=== PATIENT | female | born 1960 | race Caucasian/White ===

== ENCOUNTER 2017-04-03 09:24 | Emergency (ER) | payer BC ==
[2017-04-03] MEDS ORDERED: Ketorolac INJ* 60 MG/2 ML VIAL IM ONE (09:57)
[2017-04-03] MEDS ORDERED: Dexamethasone IV* 4 MG/ML 1 ML (4 MG) IM ONE (09:57)
--- NOTE | 2017-04-03 10:23 | ED ---
Oswaldo Winters Nikita, scribed for Michael San MD on 04/03/17 at 0959 . Upper Extremity Pain - HPI Summary HPI Summary: This patient is a 56 year old F presenting to ED with a chief complaint of L shoulder and arm pain since 2 weeks ago. The CC is described as worsening since onset and worse at night, radiating to the neck, tingling and numbing sensation to the L forearm, L thumb and index finger. The patient rates the pain 5-6/10 in severity currently and 9/10 at its worst. Symptoms aggravated by sleeping on the L shoulder and raising her L arm upwards. Symptoms alleviated by nothing. Patient denies any trauma to the shoulder. 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 - History of Current Complaint Chief Complaint: EDExtremityUpper Stated Complaint: LT ARM/SHOULDER PAIN Time Seen by Provider: 04/03/17 09:49 Hx Obtained From: Patient Onset/Duration: Started Weeks Ago, Still Present, Worse Since Timing: Constant, Lasting Weeks Severity Initially: Moderate Severity Currently: Moderate Pain Location: Shoulder - left, Forearm, Finger - L thumb and index finger Aggravating Factor(s): Other - sleeping on the L shoulder and raising her L arm upwards Alleviating Factor(s): Nothing Associated Signs & Symptoms: Positive: Other - denies trauma - Allergies/Home Medications Allergies/Adverse Reactions: Allergies Allergy/AdvReac Type Severity Reaction Status Date / Time Sulfa (Sulfonamide Allergy Hives Verified 04/03/17 09:31 Antibiotics) PMH/Surg Hx/FS Hx/Imm Hx Endocrine/Hematology History: Reports: Other Endocrine/Hematological Disorders - thyroid CA Denies: Hx Diabetes Cardiovascular History: Denies: Hx Coronary Artery Disease - Surgical History Surgery Procedure, Year, and Place: Ovaries removed (1983) Infectious Disease History: No Infectious Disease History: Denies: Traveled Outside the [place] in Last 30 Days - Family History Known Family History: Positive: Cardiac Disease, Hypertension Negative: Diabetes - Social History Occupation: Employed Full-time Alcohol Use: None Hx Substance Use: No Hx Tobacco Use: No Review of Systems Positive: Other - L shoulder pain radiating to the neck, L forearm, L thumb and index finger pain; denies trauma to shoulder Neurological: Other - numbness and tingling sensation to L thumb and index finger All Other Systems Reviewed And Are Negative: Yes Physical Exam - Summary Physical Exam Summary: VITAL SIGNS: Reviewed. GENERAL: ~Patient is a well-developed and nourished FEMALE who is lying comfortable in the stretcher. ~Patient is not in any acute respiratory distress. HEAD AND FACE: No signs of trauma. ~No ecchymosis, hematomas or skull depressions. No sinus tenderness. EYES: PERRLA, EOMI x 2, No injected conjunctiva, no nystagmus. EARS: Hearing grossly intact. Ear canals and tympanic membranes are within normal limits. MOUTH: Oropharynx within normal limits. NECK: Supple, trachea is midline, no adenopathy, no JVD, no carotid bruit, no c- spine tenderness, neck with full ROM. No neck tenderness, no deformities or hematoma. CHEST: Symmetric, no tenderness at palpation LUNGS: Clear to auscultation bilaterally. No wheezing or crackles. CVS: Regular rate and rhythm, S1 and S2 present, no murmurs or gallops appreciated. ABDOMEN: Soft, non-tender. No signs of distention. No rebound no guarding, and no masses palpated. Bowel sounds are normal. EXTREMITIES: FROM in all major joints, no edema, no cyanosis or clubbing. Positive phalen test, positive tenderness along L wrist. NEURO: Alert and oriented x 3. No acute neurological deficits. Speech is normal and follows commands. SKIN: Dry and warm Triage Information Reviewed: Yes Vital Signs On Initial Exam: Initial Vitals Temp Pulse Resp BP Pulse Ox 96.9 F 71 19 183/82 96 04/03/17 09:26 18 09:26 04/03/17 09:26 04/03/17 09:26 04/03/17 09:26 Vital Signs Reviewed: Yes Diagnostics - Vital Signs Vital Signs Temp Pulse Resp BP Pulse Ox 04/03/17 09:26 96.9 F 71 19 183/82 96 - Laboratory Lab Statement: Any lab studies that have been ordered have been reviewed, and results considered in the medical decision making process. Course/Dx - Course Assessment/Plan: In the physical, I believe the pt has carpal tunnel syndrome. therefore, the pt will be given decadron, toradol, and a wrist splint. The pt will be discharged with instructions to follow up with her PCP. The pt is hemodynamically stable, alert and oriented x3. - Diagnoses Differential Diagnosis/HQI/PQRI: Positive: Contusion, Fracture (Closed), Strain , Sprain, Other - carpal tunnel syndrome Provider Diagnoses: Carpal tunnel syndrome Discharge - Discharge Plan Condition: Stable Disposition: HOME Prescriptions: Ibuprofen TAB* [Motrin TAB* 600 MG] 600 mg PO Q8H PRN #30 tab PRN Reason: Pain methylPREDNISolone [Medrol Dosepak 4 MG*] 0 mg PO .SEE STEFANI INSTRUCTION #1 stefani Patient Education Materials: Paresthesia (ED) Referrals: Cyn Mae MD [Primary Care Provider] - 3 Days Additional Instructions: RETURN TO THE ED FOR ANY NEW OR WORSENING SYMPTOMS. The documentation as recorded by the Oswaldo duval Nikita accurately reflects the service I personally performed and the decisions made by Jaswinder calixto Walter, MD.
[2017-04-03 10:35] VITALS: BP 168/82
== END 2017-04-03 10:34 | disposition home or self-care (01) ==
LOC: ED 09:24
DX: G56.02 Carpal tunnel syndrome, left upper limb (principal); Z88.2 Allergy status to sulfonamides
CPT/HCPCS: 96372; 99282; J1100; J1885

== ENCOUNTER 2017-12-28 13:53 | Emergency (ER) | payer BC ==
[2017-12-28] MEDS ORDERED: Ondansetron INJ* 2 MG/ML VIAL IV ONE (14:36)
[2017-12-28] MEDS ORDERED: NS 0.9% 1000 ML* 1,000 ML IV ONE ×2 (14:36→15:55)
[2017-12-28 15:08] LABS: ABS Basophils 0 10^3/ul (0-0.2); ABS Eosinophils 0 10^3/ul (0-0.6); ABS Lymphocytes 1.6 10^3/ul (1.0-4.8); ABS Monocytes 0.6 10^3/ul (0-0.8); ABS Neutrophils 4.9 10^3/ul (1.5-7.7); ABS Nucleated RBC 0 10^3/ul; Eosinophil % 0.4 % (0-6); Hematocrit 45 % (35-47); Hemoglobin 15.3 g/dl (12.0-16.0); Lymphocyte % 22.6 % (25-47); Mean Corpuscular HGB Conc 34 g/dl (31-36); Mean Corpuscular Hemoglobin 27 pg (27-31); Mean Corpuscular Volume 80 fL (80-97); Mean Platelet Volume 7.1 um3 (7.4-10.4); Nucleated Red Blood Cells % 0.2; Platelet Count 167 10^3/ul (150-450); Red Blood Count 5.63 10^6/ul (4.00-5.40); Red Cell Distribution Width 15 % (10.5-15); White Blood Count 7.2 10^3/ul (3.5-10.8)
--- NOTE | 2017-12-28 15:33 | ED ---
GI/ HPI - HPI Summary HPI Summary: Pt is a 57 y/o female who presents to the ED c/o N/V/D for 3 days. She states the N/V has improved, but she still has diarrhea and abdominal pain. Pt cannot keep food down. The BMs are yellow in color. She denies any recent antibiotics, travel, or hospital visits. Pt also reports feeling dehydrated, weak, and dizzy. - History of Current Complaint Chief Complaint: EDNauseaVomitDiarrh Time Seen by Provider: 12/28/17 14:32 Stated Complaint: VOMITING/DIARRHEA Hx Obtained From: Patient Onset/Duration: Started Days Ago - 3, Still Present Timing: Constant Pain Intensity: 0 Location of Pain: Diffuse Associated Signs and Symptoms: Positive: Dizziness, Weakness, Nausea, Vomiting, Diarrhea, Abdominal Pain Aggravating Factor(s): Food Alleviating Factor(s): Nothing - Allergy/Home Medications Allergies/Adverse Reactions: Allergies Allergy/AdvReac Type Severity Reaction Status Date / Time Sulfa (Sulfonamide Allergy Hives Verified 12/28/17 14:19 Antibiotics) Home Medications: Home Medications Levothyroxine TAB* [Synthroid TAB*] 125 mcg PO DAILY 12/28/17 [History Confirmed 12/28/17] methylPREDNISolone [Medrol Dosepak 4 MG*] 10 mg PO .SEE STEAFNI INSTRUCTION [History Confirmed 12/28/17] PMH/Surg Hx/FS Hx/Imm Hx Endocrine/Hematology History: Reports: Other Endocrine/Hematological Disorders - thyroid CA Denies: Hx Diabetes Cardiovascular History: Denies: Hx Coronary Artery Disease, Hx Hypertension, Hx Pacemaker/ICD Sensory History: Denies: Hx Hearing Aid Psychiatric History: Denies: Hx Panic Disorder - Cancer History Cancer Type, Location and Year: THYROID CANCER 2002 Hx Chemotherapy: No Hx Radiation Therapy: Yes - Surgical History Surgery Procedure, Year, and Place: Ovaries removed (1983), THYROID Infectious Disease History: No Infectious Disease History: Denies: Traveled Outside the [place] in Last 30 Days - Family History Known Family History: Positive: Cardiac Disease, Hypertension Negative: Diabetes - Social History Alcohol Use: None Hx Substance Use: No Substance Use Type: Reports: None Hx Tobacco Use: No Smoking Status (MU): Never Smoked Tobacco Review of Systems Positive: Abdominal Pain, Vomiting, Diarrhea, Nausea Neurological: Other - Dizziness Positive: Weakness All Other Systems Reviewed And Are Negative: Yes Physical Exam - Summary Physical Exam Summary: Appearance: Well appearing, no pain distress Skin: warm, dry, reflects adequate perfusion Head/face: normal Eyes: EOMI, KENA ENT: mucous membranes tacky Neck: supple, non-tender Respiratory: CTA, breath sounds present Cardiovascular: RRR, pulses symmetrical Abdomen: non-tender, soft Bowel Sounds: present Musculoskeletal: normal, strength/ROM intact Neuro: normal, sensory motor intact, A&Ox3 Triage Information Reviewed: Yes Vital Signs On Initial Exam: Initial Vitals Temp Pulse Resp BP Pulse Ox 98.8 F 97 20 118/78 94 12/28/17 14:17 12/28/17 14:17 12/28/17 14:17 12/28/17 14:17 12/28/17 14:17 Vital Signs Reviewed: Yes Diagnostics - Vital Signs Vital Signs Temp Pulse Resp BP Pulse Ox 12/28/17 14:17 98.8 F 97 20 118/78 94 - Laboratory Lab Results: Lab Results 12/28/17 Range/Units 14:52 WBC 7.2 (3.5-10.8) 10^3/ul RBC 5.63 H (4.00-5.40) 10^6/ul Hgb 15.3 (12.0-16.0) g/dl Hct 45 (35-47) % MCV 80 (80-97) fL MCH 27 (27-31) pg MCHC 34 (31-36) g/dl RDW 15 (10.5-15) % Plt Count 167 (150-450) 10^3/ul MPV 7.1 L (7.4-10.4) um3 Neut % (Auto) 67.9 (38-83) % Lymph % (Auto) 22.6 L (25-47) % Saline % (Auto) 8.5 H (0-7) % Eos % (Auto) 0.4 (0-6) % Baso % (Auto) 0.6 (0-2) % Absolute Neuts (auto) 4.9 (1.5-7.7) 10^3/ul Absolute Lymphs (auto) 1.6 (1.0-4.8) 10^3/ul Absolute Monos (auto) 0.6 (0-0.8) 10^3/ul Absolute Eos (auto) 0 (0-0.6) 10^3/ul Absolute Basos (auto) 0 (0-0.2) 10^3/ul Absolute Nucleated RBC 0 10^3/ul Nucleated RBC % 0.2 Result Diagrams: 12/28/17 14:52 12/28/17 14:52 Lab Statement: Any lab studies that have been ordered have been reviewed, and results considered in the medical decision making process. GIGU Course/Dx - Course Course Of Treatment: Patient with nausea vomiting and diarrhea which has progressed is simply a watery diarrhea. She have a slight elevation in her creatinine from baseline. 2 L of IV fluids given here. We will treat symptomatically with Imodium. Follow up closely primary care physician. - Diagnoses Differential Diagnoses - Female: Other - C. difficile colitis, bacterial gastroenteritis, viral gastroenteritis Provider Diagnoses: Acute gastroenteritis, UTI (urinary tract infection), Acute renal insufficiency Discharge - Sign-Out/Discharge Documenting (check all that apply): Patient Departure - Discharge - Discharge Plan Condition: Stable Disposition: HOME Patient Education Materials: Urinary Tract Infection in Women (ED), Gastroenteritis (ED) Referrals: Cyn Mae MD [Primary Care Provider] - Additional Instructions: Take Imodium with every loose stool. You may take up to 6 per day. Hydrate well, electrolyte containing solutions such as propel water or Gatorade G2 may work best. Return if worse, high fevers, blood in the stools, new symptoms or other concerns. Call in the morning to schedule prompt follow-up with your doctor. - Billing Disposition and Condition Condition: STABLE Disposition: Home - Attestation Statements Document Initiated by Azul: Yes Documenting Scribe: Leeann Soto Provider For Whom Azul is Documenting (Include Credential): Juan Landeros MD Scribe Attestation: Leeann Winters, scribed for Juan Landeros MD on 12/28/17 at 1749. Scribe Documentation Reviewed: Yes Provider Attestation: The documentation as recorded by the Leeann duval accurately reflects the service I personally performed and the decisions made by me, Juan Landeros MD
[2017-12-28 15:51] LABS: EGFR Non-African American 42.3 (>60)
[2017-12-28 15:52] LABS: Urine Appearance Cloudy; Urine Blood Negative (Negative); Urine Color Amber; Urine Ketones 1+ (Negative); Urine Protein 1+(30 mg/dL) (Negative); Urine Red Blood Cell 3+(>10/hpf) (Absent); Urine Specific Gravity 1.025 (1.010-1.030); Urine Urobilinogen Negative (Negative); Urine White Blood Cell 3+(>20/hpf) (Absent)
[2017-12-28] MEDS ORDERED: cefTRIAXone(*) 1 GM in NS 0.9% 50 ML* 50 ML IVPB ONE (15:55)
[2017-12-28 17:08] VITALS: BP 162/79
== END 2017-12-28 17:09 | disposition home or self-care (01) ==
LOC: ED 13:53
DX: K52.9 Noninfective gastroenteritis and colitis, unspecified (principal); N39.0 Urinary tract infection, site not specified; N28.9 Disorder of kidney and ureter, unspecified; Z85.850 Personal history of malignant neoplasm of thyroid
CPT/HCPCS: 36415; 80053; 81003; 81015; 83605; 83690; 85025; 86140; 87086; 96361; 96374; 96375; 99282; J0696; J2405

== ENCOUNTER 2018-05-30 08:56 | Emergency (ER) | payer BC ==
[2018-05-30 09:04] VITALS: BP 153/87
--- NOTE | 2018-05-30 09:21 | UC ---
Respiratory Complaint HPI - HPI Summary HPI Summary: Ms. Field presents with URI symptoms for about a week. She took an OTC decongestant last night which seems to have helped. This AM her left eye was matted shut and both have been runny and red for a day or so. - History of Current Complaint Chief Complaint: UCRespiratory Stated Complaint: SINUS Time Seen by Provider: 05/30/18 09:10 Hx Obtained From: Patient ?: No Onset/Duration: Gradual Onset Timing: Constant Severity Initially: Mild Severity Currently: Moderate Pain Intensity: 0 Character: Cough: Nonproductive Aggravating Factors: Nothing Alleviating Factors: Nothing Associated Signs And Symptoms: Positive: Negative - Allergies/Home Medications Allergies/Adverse Reactions: Allergies Allergy/AdvReac Type Severity Reaction Status Date / Time Sulfa (Sulfonamide Allergy Hives Verified 12/28/17 14:19 Antibiotics) Home Medications: Home Medications Dm/Acetaminophen/Doxylamine [Vicks Nyquil Cold & Flu N 15-6.25-325 mg] 1 cap PO 05/30/18 [History] PMH/Surg Hx/FS Hx/Imm Hx - Additional Past Medical History Additional PMH: Thyroid cancer 17 years ago Previously Healthy: Yes - Surgical History Surgical History: Yes Surgery Procedure, Year, and Place: Ovaries removed (1983), THYROID - Family History Known Family History: Positive: Cardiac Disease, Hypertension Negative: Diabetes - Social History Alcohol Use: None Substance Use Type: None Smoking Status (MU): Never Smoked Tobacco Review of Systems All Other Systems Reviewed And Are Negative: Yes Constitutional: Positive: Negative Skin: Positive: Negative Eyes: Positive: Drainage, Eye Redness ENT: Positive: Sore Throat, Nasal Discharge, Sinus Congestion Respiratory: Positive: Cough Cardiovascular: Positive: Negative Gastrointestinal: Positive: Negative Genitourinary: Positive: Negative Musculoskeletal: Positive: Negative Neurological: Positive: Negative Psychological: Positive: Negative Physical Exam - Summary Physical Exam Summary: She was non-toxic in appearance with stable vitals. Triage Information Reviewed: Yes Appearance: Well-Appearing Vital Signs: Initial Vital Signs Temp 97.6 F 05/30/18 09:01 Pulse 84 05/30/18 09:01 Resp 18 05/30/18 09:01 BP 153/87 05/30/18 09:01 Pulse Ox 98 05/30/18 09:01 Vital Signs Reviewed: Yes Eyes: Positive: Conjunctiva Inflamed. Negative: Discharge ENT: Positive: Pharyngeal erythema, Nasal drainage, TMs normal Neck exam: Normal Neck: Positive: Supple, Nontender, No Lymphadenopathy Respiratory Exam: Normal Cardiovascular Exam: Normal Abdominal Exam: Normal Respiratory Course/Dx - Course Course Of Treatment: This is likely all viral and I will treat her symptomatically. - Differential Dx/Diagnosis Provider Diagnosis: URI (upper respiratory infection), Conjunctivitis Discharge - Sign-Out/Discharge Documenting (check all that apply): Patient Departure All imaging exams completed and their final reports reviewed: No Studies - Discharge Plan Condition: Stable Disposition: HOME Patient Education Materials: Upper Respiratory Infection (ED), Conjunctivitis ( ED) Referrals: No Primary Care Phys,NOPCP [Primary Care Provider] - - Billing Disposition and Condition Condition: STABLE Disposition: Home
== END 2018-05-30 09:30 | disposition home or self-care (01) ==
LOC: UCEAST 08:56
DX: J06.9 Acute upper respiratory infection, unspecified (principal); Z88.2 Allergy status to sulfonamides; Z85.850 Personal history of malignant neoplasm of thyroid
CPT/HCPCS: 99212; G0463